=== PATIENT | female | born 1975 | race Caucasian/White ===

== ENCOUNTER 2021-07-29 11:10 | Emergency (ER) | payer OTHER ==
[2021-07-29] MEDS ORDERED: ASPIRIN 81 MG CHEWABLE TABLETS PO ONE (11:26)
[2021-07-29] MEDS ORDERED: ASPIRIN 81 MG CHEWABLE TABLETS ONE (11:30)
[2021-07-29 11:56] VITALS: TEMP 97.8; BMI 29.2
[2021-07-29] MEDS ORDERED: SODIUM CHLORIDE 0.9% 500 ML INFUS.BAG IV ONE (12:05)
[2021-07-29 12:10] LABS: HEMATOCRIT 37.9 % (32.4-45.2); HEMOGLOBIN 13.2 G/dL (10.7-15.3); MCH 28.8 pg (25.7-33.7); MCHC 34.7 g/dl (32.0-36.0); MEAN CELL VOLUME 83.1 fl (80-96); MEAN PLT VOLUME 7.8 fl (7.5-11.1); PLATELET COUNT 315.7 10^3/uL (134-434); RBC 4.56 10^6/uL (3.60-5.2); RDW 14.2 % (11.6-15.6); WHITE BLOOD COUNT 7.9 10^3/uL (4.0-10.8)
[2021-07-29 12:23] LABS: INR 1.04 (0.83-1.09)
[2021-07-29 12:26] LABS: ACTIVATED PTT 35.6 SECONDS (25.2-36.5)
[2021-07-29 12:34] LABS: ALBUMIN 4.2 g/dl (3.4-5.0); BILIRUBIN,TOTAL 0.4 mg/dl (0.2-1); CALCIUM 9.4 mg/dl (8.5-10); CREATININE 0.8 mg/dl (0.55-1.3); MAGNESIUM 1.9 mg/dL (1.8-2.4); PHOSPHOROUS 2.6 mg/dl (2.5-4.9); TOT PROT 7.1 g/dl (6.4-8.2)
[2021-07-29 13:32] VITALS: BP 141/88; PULSE 76
== END 2021-07-29 13:35 | disposition home or self-care (01) ==
LOC: FER 11:10
DX: R07.9 Chest pain, unspecified (principal)
CPT/HCPCS: 36415; 71045-TC-FY; 80053; 83690; 83735; 84100; 84443; 84484; 85025; 85610; 85730; 93005; 99285-25